=== PATIENT | female | born 2000 | race Two or more races ===

== ENCOUNTER 2021-12-21 06:40 | Inpatient (IN) | payer OTHER ==
[2021-12-21] MEDS ORDERED: DEXTROSE 5%-LACTATED RINGERS 1,000 ML IV SCH (09:00)
[2021-12-21] MEDS ORDERED: ELECTROLYTE-148 SOLN 1,000 ML IV SCH (10:30)
[2021-12-21] MEDS ORDERED: BUTORPHANOL TARTRATE 1 MG/ML VIAL ONE (10:40)
[2021-12-21 11:00] VITALS: BMI 24.6
[2021-12-21] MEDS ORDERED: BUTORPHANOL TARTRATE 1 MG/ML VIAL IVPB ONE (11:00)
[2021-12-21 11:10] LABS: BASO % 0.5 % (0-2.0); EOS % 0.5 % (0-4.5); HEMATOCRIT 27.7 % (32.4-45.2); HEMOGLOBIN 8.9 GM/dL (10.7-15.3); LYMPH % 29.5 % (8-40); MCH 23.6 pg (25.7-33.7); MCHC 32.1 g/dl (32.0-36.0); MEAN CELL VOLUME 73.4 fl (80-96); MONO % 5.4 % (3.8-10.2); NEUT % 64.1 % (42.8-82.8); PLATELET COUNT 291 10^3/uL (134-434); RBC 3.77 M/mm3 (3.60-5.2); RDW 16.3 % (11.6-15.6); WHITE BLOOD COUNT 5.8 K/mm3 (4.0-10.0)
[2021-12-21 11:17] LABS: INR 0.89 (0.83-1.09); PROTHROMBIN TIME (PATIENT) 10.2 SEC (9.7-13.0)
[2021-12-21 11:20] LABS: ACTIVATED PTT 27.3 SECONDS (25.2-36.5)
[2021-12-21 11:32] LABS: CALCIUM 7.9 mg/dL (8.5-10.1)
[2021-12-21 11:33] LABS: BLOOD UREA NITROGEN 6.7 mg/dL (7-18)
[2021-12-21 11:36] LABS: CREATININE 0.4 mg/dL (0.55-1.3)
[2021-12-21] MEDS ORDERED: OXYTOCIN 20 UNITS in 0.9% NS 20 UNIT/1,000 ML INFUS.BAG IV ONE (12:58)
[2021-12-21] MEDS ORDERED: LIDOCAINE HCL 1% PRESERVATIVE FREE - 30ML VIAL ONE (13:58)
[2021-12-21] MEDS ORDERED: MISOPROSTOL 200 MCG TABLET ONE (14:01)
[2021-12-21] MEDS ORDERED: BENZOCAINE 28 GM HEMORRHOIDAL OINTMENT TP PRN (14:13)
[2021-12-21] MEDS ORDERED: ACETAMINOPHEN 325 MG TABLET (FP) PO PRN (14:13)
[2021-12-21] MEDS ORDERED: WITCH HAZEL 50% (TUCKS) 40 PAD/JAR PAD TP PRN (14:13)
[2021-12-21] MEDS ORDERED: BISACODYL 10 MG SUPP.RECT RC PRN (14:13)
[2021-12-21] MEDS ORDERED: BENZOCAINE 20% 57 GM BOTTLE TP PRN (14:13)
[2021-12-21] MEDS ORDERED: OXYTOCIN 20 UNITS in 0.9% NS 20 UNIT/1,000 ML INFUS.BAG IV SCH (14:15)
[2021-12-21] MEDS ORDERED: MISOPROSTOL 100 MCG TABLET PV ONE (14:18)
[2021-12-21] MEDS: IBUPROFEN 600 MG TABLET (FP) PO PRN ×2 (16:10→21:37)
[2021-12-22 07:21] LABS: BASO % 0.6 % (0-2.0); EOS % 0.2 % (0-4.5); HEMATOCRIT 25.9 % (32.4-45.2); HEMOGLOBIN 8.4 GM/dL (10.7-15.3); LYMPH % 30.2 % (8-40); MCH 23.9 pg (25.7-33.7); MCHC 32.4 g/dl (32.0-36.0); MEAN PLT VOLUME 8.4 fl (7.5-11.1); PLATELET COUNT 272 10^3/uL (134-434); RDW 16.6 % (11.6-15.6)
[2021-12-22] MEDS: FERROUS SO4 325 MG TABLET (FP) PO SCH (10:06)
[2021-12-22] MEDS: IBUPROFEN 600 MG TABLET (FP) PO PRN (21:44)
[2021-12-22] MEDS ORDERED: SENNOSIDES/DOCUSATE COMBO (SENNA PLUS) TABLET (UD) PO PRN (22:00)
[2021-12-23 10:01] VITALS: BP 97/63; PULSE 61; TEMP 97.8
[2021-12-23] MEDS: FERROUS SO4 325 MG TABLET (FP) PO SCH (10:59)
== END 2021-12-23 14:35 | disposition home or self-care (01) | DRG 560 ==
LOC: JER 06:40 → JDEL 06:40 → JLDR 07:10 → J3W 15:20
PROVIDERS: ADMIT Student in an Organized Health Care Education/Training Program; ATTEND Student in an Organized Health Care Education/Training Program
PROC: 10E0XZZ Delivery of Products of Conception, External Approach (ICD-10-PCS; principal; 2021-12-21)
PROC: 0W8NXZZ Division of Female Perineum, External Approach (ICD-10-PCS; 2021-12-21)
PROC: 0UQMXZZ Repair Vulva, External Approach (ICD-10-PCS; 2021-12-21)
DX: O41.03X0 Oligohydramnios, third trimester, not applicable or unspecified (principal); O99.02 Anemia complicating childbirth; D64.9 Anemia, unspecified; O70.0 First degree perineal laceration during delivery; O77.0 Labor and delivery complicated by meconium in amniotic fluid; Z3A.39 39 weeks gestation of pregnancy; Z37.0 Single live birth
CPT/HCPCS: 36415; 59409; 80048; 85025; 85610; 85730; 86780; 86850; 86900; 86901; 99285-25; C9803-CS; U0003; U0005